=== PATIENT | male | born 1945 | race Caucasian/White ===

== ENCOUNTER → 2016-09-25 | Outpatient (CLI) | payer BC ==
[2016-09-25 14:16] LABS: ABSOLUTE EOSINOPHILS # (AUTO) 0.1 10^3/uL (0.0-0.6); ABSOLUTE LYMPHOCYTES (AUTO) 0.7 10^3/uL (0.5-4.7); ABSOLUTE MONOCYTES (AUTO) 0.8 10^3/uL (0.1-1.4); ABSOLUTE NEUT (AUTO) 7.5 10^3/uL (1.7-8.2); BASOPHILS % (AUTO) 0.4 % (0-2); EOSINOPHILS % (AUTO) 1.2 % (0-6); HEMATOCRIT 51.8 % (37.9-51.0); HEMOGLOBIN 17.5 g/dL (13.5-17.0); HGB HCT DIFFERENCE 0.7; LYMPHOCYTES % (AUTO) 7.8 % (13-45); MEAN CORPUSCULAR HEMOGLOBIN 32.8 pg (27.0-33.4); MEAN CORPUSCULAR HGB CONC 33.9 g/dL (32.0-36.0); MEAN CORPUSCULAR VOLUME 97 fl (80-97); MONOCYTES % (AUTO) 8.7 % (3-13); RED BLOOD COUNT 5.34 10^6/uL (4.35-5.55); RED CELL DISTRIBUTION WIDTH 14.6 % (11.5-14.0); SEGMENTED NEUTROPHILS % (AUTO) 81.9 % (42-78); WHITE BLOOD COUNT 9.1 10^3/uL (4.0-10.5)
[2016-09-25 14:38] LABS: ALANINE AMINOTRANSFERASE 39 U/L (21-72); ALBUMIN 3.7 g/dL (3.5-5.0); ALKALINE PHOSPHATASE 59 U/L (38-126); ANION GAP 9 (5-19); ASPARTATE AMINO TRANSFERASE 20 U/L (17-59); BILIRUBIN,TOTAL 1.8 mg/dL (0.2-1.3); BLOOD UREA NITROGEN 13 mg/dL (7-20); CALCIUM 8.6 mg/dL (8.4-10.2); CARBON DIOXIDE 25 mmol/L (22-30); CHLORIDE 103 mmol/L (98-107); CHOLESTEROL 117.16 mg/dL (0-200); CREATININE RESULT 0.65 mg/dL (0.52-1.25); Direct HDL 43 mg/dL (>40); GLUCOSE 92 mg/dL (75-110); MAGNESIUM 1.9 mg/dL (1.6-2.3); POTASSIUM 4.1 mmol/L (3.6-5.0); SODIUM 137.4 mmol/L (137-145); TOTAL PROTEIN 6.1 g/dL (6.3-8.2); TRIGLYCERIDES 39 mg/dL (<150)
[2016-09-25 14:49] LABS: DIRECT LDL 67 mg/dL (<100)
[2016-09-25 14:55] LABS: FREE T3 4.14 pg/mL (2.77-5.27)
[2016-09-25 15:09] LABS: THYROID STIMULATING HORMONE 1.76 uIU/mL (0.47-4.68)
--- NOTE | 2016-09-25 20:02 | EKG REPORT ---
SEVERITY:- ABNORMAL ECG - SINUS RHYTHM LEFT ANTERIOR FASCICULAR BLOCK : Confirmed by: Rosa Cox 25-Sep-2016 20:01:30
[2016-09-27 07:41] LABS: DEHYDROEPIANDROSTERONE SULFATE 172.4 ug/dL (30.9-295.6)
[2016-09-27 15:27] LABS: ESTRADIOL 100.6 pg/mL (7.6-42.6); SEX HORM BINDING GLOBULIN 30.2 nmol/L (19.3-76.4); VITAMIN D 25-HYDROXY 52.9 ng/mL (30.0-100.0)
[2016-09-28 15:36] LABS: INSULIN-LIKE GROWTH FACTOR I 136 ng/mL (47-192)
[2016-09-29 07:10] LABS: TESTOSTERONE FREE (DIRECT) 30.6 pg/mL (6.6-18.1)
[2016-09-29 12:39] LABS: HOMOCYST(E)INE PLASMA 8.6 umol/L (0.0-15.0)
== END ==
LOC: OD 13:03
PROVIDERS: ATTEND Anesthesiology
DX: E34.9 Endocrine disorder, unspecified (principal); E63.9 Nutritional deficiency, unspecified; E03.9 Hypothyroidism, unspecified; R53.83 Other fatigue; N52.9 Male erectile dysfunction, unspecified; R53.81 Other malaise; E78.5 Hyperlipidemia, unspecified
CPT/HCPCS: 36415; 80053; 80061; 82306; 82627; 82670; 82728; 83036; 83090; 83735; 84153; 84270; 84305; 84402; 84403; 84439; 84443; 84481; 85025; 93005; 93010

== ENCOUNTER → 2017-02-05 | Outpatient (CLI) | payer BC ==
--- NOTE | 2017-02-05 16:45 | RADIOLOGY REPORT (SQ) ---
EXAM DESCRIPTION: CHEST PA/LATERAL COMPLETED DATE/TIME: 02/05/2017 3:52 pm REASON FOR STUDY: PRE OP COMPARISON: None. EXAM PARAMETERS: NUMBER OF VIEWS: two views TECHNIQUE: Digital Frontal and Lateral radiographic views of the chest acquired. RADIATION DOSE: NA LIMITATIONS: none FINDINGS: LUNGS AND PLEURA: No opacities, masses or pneumothorax. No pleural effusion. MEDIASTINUM AND HILAR STRUCTURES: No masses or contour abnormalities. HEART AND VASCULAR STRUCTURES: Heart normal size. No evidence for failure. Tortuous thoracic aorta is again identified. BONES: No acute findings. HARDWARE: None in the chest. OTHER: No other significant finding. IMPRESSION: NO SIGNIFICANT RADIOGRAPHIC FINDING IN THE CHEST. TECHNICAL DOCUMENTATION: JOB ID: [id number] [employer]- All Rights Reserved
[2017-02-05 16:56] LABS: ABSOLUTE EOSINOPHILS # (AUTO) 0.1 10^3/uL (0.0-0.6); ABSOLUTE LYMPHOCYTES (AUTO) 0.9 10^3/uL (0.5-4.7); ABSOLUTE NEUT (AUTO) 10.2 10^3/uL (1.7-8.2); BASOPHILS % (AUTO) 0.2 % (0-2); EOSINOPHILS % (AUTO) 0.8 % (0-6); HEMATOCRIT 47.9 % (37.9-51.0); HEMOGLOBIN 16.2 g/dL (13.5-17.0); HGB HCT DIFFERENCE 0.7; MEAN CORPUSCULAR HEMOGLOBIN 31.6 pg (27.0-33.4); MEAN CORPUSCULAR HGB CONC 33.8 g/dL (32.0-36.0); MEAN CORPUSCULAR VOLUME 93 fl (80-97); MONOCYTES % (AUTO) 8.5 % (3-13); RED BLOOD COUNT 5.13 10^6/uL (4.35-5.55); RED CELL DISTRIBUTION WIDTH 14.1 % (11.5-14.0); SEGMENTED NEUTROPHILS % (AUTO) 83.5 % (42-78); WHITE BLOOD COUNT 12.3 10^3/uL (4.0-10.5)
[2017-02-05 17:11] LABS: APPEARANCE,URINE SLIGHTLY-CLOUDY; BILIRUBIN,URINE NEGATIVE (NEGATIVE); CALCIUM OXALATE CRYSTALS,URINE FEW /HPF; GLUCOSE, URINE NEGATIVE (NEGATIVE); KETONES,URINE TRACE mg/dL (NEGATIVE); LEUKOCYTE ESTERASE,URINE NEGATIVE (NEGATIVE); NITRITE,URINE NEGATIVE (NEGATIVE); PROTEIN,URINE NEGATIVE (NEGATIVE); URINE SPECIFIC GRAVITY 1.029; UROBILINOGEN,URINE NEGATIVE mg/dL (<2.0)
[2017-02-05 17:17] LABS: BLOOD UREA NITROGEN 21 mg/dL (7-20); CARBON DIOXIDE 26 mmol/L (22-30); CHLORIDE 103 mmol/L (98-107); CREATININE RESULT 0.68 mg/dL (0.52-1.25); GLUCOSE 78 mg/dL (75-110); SODIUM 139.4 mmol/L (137-145)
[2017-02-05 17:18] LABS: ANION GAP 10 (5-19)
--- NOTE | 2017-02-06 05:58 | EKG REPORT ---
SEVERITY:- ABNORMAL ECG - ATRIAL FIBRILLATION, V-RATE 96-156 LEFT AXIS DEVIATION : Confirmed by: Francesca Donohue MD 06-Feb-2017 05:56:57
== END ==
LOC: OD 15:09
PROVIDERS: ATTEND Orthopaedic Surgery
DX: Z01.818 Encounter for other preprocedural examination (principal)
CPT/HCPCS: 36415; 71020; 80048; 81001; 85025; 93005; 93010

== ENCOUNTER → 2017-02-09 | Outpatient (CLI) | payer BC ==
[2017-02-09 15:39] LABS: PARTIAL THROMBOPLASTIN TIME 27.6 SEC (23.5-35.8); PROTHROMBIN TIME 13.5 SEC (11.4-15.4)
[2017-02-09 15:55] LABS: ALANINE AMINOTRANSFERASE 37 U/L (21-72); ALBUMIN 3.7 g/dL (3.5-5.0); ALKALINE PHOSPHATASE 75 U/L (38-126); ANION GAP 11 (5-19); ASPARTATE AMINO TRANSFERASE 22 U/L (17-59); BILIRUBIN,DIRECT 0.4 mg/dL (0.0-0.4); BILIRUBIN,TOTAL 1.4 mg/dL (0.2-1.3); BLOOD UREA NITROGEN 22 mg/dL (7-20); CARBON DIOXIDE 25 mmol/L (22-30); CHLORIDE 104 mmol/L (98-107); CHOLESTEROL 121.61 mg/dL (0-200); CREATININE RESULT 0.72 mg/dL (0.52-1.25); Direct HDL 47 mg/dL (>40); GLUCOSE 81 mg/dL (75-110); MAGNESIUM 2.1 mg/dL (1.6-2.3); POTASSIUM 4.3 mmol/L (3.6-5.0); SODIUM 140.1 mmol/L (137-145); TOTAL PROTEIN 6.6 g/dL (6.3-8.2); TRIGLYCERIDES 78 mg/dL (<150)
[2017-02-09 16:06] LABS: DIRECT LDL 69 mg/dL (<100)
[2017-02-09 16:22] LABS: THYROID STIMULATING HORMONE 2.91 uIU/mL (0.47-4.68)
== END ==
LOC: OD 13:18
PROVIDERS: ATTEND Internal Medicine Cardiovascular Disease
DX: I48.91 Unspecified atrial fibrillation (principal); Z79.899 Other long term (current) drug therapy
CPT/HCPCS: 36415; 80048; 80061; 80076; 83735; 83880; 84439; 84443; 85025; 85610; 85730

== ENCOUNTER → 2017-02-09 | Outpatient (CLI) | payer BC ==
[2017-02-09 17:05] LABS: ABSOLUTE EOSINOPHILS # (AUTO) 0.1 10^3/uL (0.0-0.6); ABSOLUTE MONOCYTES (AUTO) 0.9 10^3/uL (0.1-1.4); ABSOLUTE NEUT (AUTO) 9.3 10^3/uL (1.7-8.2); BASOPHILS % (AUTO) 0.4 % (0-2); EOSINOPHILS % (AUTO) 0.9 % (0-6); HEMATOCRIT 47.4 % (37.9-51.0); HEMOGLOBIN 15.9 g/dL (13.5-17.0); HGB HCT DIFFERENCE 0.3; LYMPHOCYTES % (AUTO) 8.7 % (13-45); MEAN CORPUSCULAR HEMOGLOBIN 31.5 pg (27.0-33.4); MEAN CORPUSCULAR HGB CONC 33.5 g/dL (32.0-36.0); MEAN CORPUSCULAR VOLUME 94 fl (80-97); MONOCYTES % (AUTO) 8.1 % (3-13); RED BLOOD COUNT 5.03 10^6/uL (4.35-5.55); RED CELL DISTRIBUTION WIDTH 14.5 % (11.5-14.0); SEGMENTED NEUTROPHILS % (AUTO) 81.9 % (42-78); WHITE BLOOD COUNT 11.3 10^3/uL (4.0-10.5)
== END ==
LOC: OD 16:04
PROVIDERS: ATTEND Physician Assistant
DX: D72.829 Elevated white blood cell count, unspecified (principal)
CPT/HCPCS: 36415; 85025

== ENCOUNTER 2017-02-11 05:55 | Inpatient (IN) | payer BC, MEDICARE ==
[~2017-02-11 05:55] MED LIST: BUPIVACAINE INJ/PF LIPOSOME/PF 266 MG/20 ML SDV INJ PRN; CEFAZOLIN INJ 1 GM VIAL IV PRN; IBUPROFEN 800 MG in NORMAL SALINE 250 ML IV PRN; LANSOPRAZOLE 15 MG TAB.RAP.DR PO PRN; OXYCODONE HCL SR 10 MG TABLET PO PRN; VANCOMYCIN HCL 1,000 MG in DEXTROSE 5%-WATER 250 ML IV PRN
[2017-02-11] MEDS ORDERED: DILTIAZEM HCL/D5W 125 MG/125 ML RTUINJ IV ONE (10:11)
[2017-02-11] MEDS ORDERED: DILTIAZEM HCL INJ 25 MG/5 ML VIAL ONE (10:12)
[2017-02-11] MEDS ORDERED: THROMBIN (BOVINE) TOPICAL 20000 UNIT VIAL ONE (10:29)
[2017-02-11] MEDS ORDERED: THROMBIN (BOVINE) 5000 UNIT EPITAXIS KIT ONE (10:29)
[2017-02-11] MEDS ORDERED: BUPIVACAINE INJ/PF LIPOSOME/PF 266 MG/20 ML SDV ONE (10:30)
[2017-02-11] MEDS ORDERED: MIDAZOLAM 2 MG/2 ML INJ ONE ×2 (10:33)
[2017-02-11] MEDS ORDERED: FENTANYL CITRATE INJ/PF 100 MCG/2 ML AMPUL ONE ×2 (10:33)
[2017-02-11] MEDS ORDERED: ONDANSETRON HCL INJ/PF 4 MG/2 ML SDV ONE (10:34)
[2017-02-11] MEDS ORDERED: DEXAMETHASONE SOD PHOSPHATE INJ 4 MG/1 ML VIAL ONE (10:34)
[2017-02-11] MEDS ORDERED: PROPOFOL INJ 200 MG/20 ML VIAL IV ONE (10:34)
[2017-02-11] MEDS ORDERED: MORPHINE SULFATE 10 MG/ML INJ ONE (10:35)
[2017-02-11] MEDS ORDERED: VANCOMYCIN HCL INJ 1000 MG VIAL ONE (10:42)
[2017-02-11] MEDS ORDERED: FENTANYL CITRATE INJ/PF 100 MCG/2 ML AMPUL IV PRN ×3 (11:24)
[2017-02-11] MEDS ORDERED: DIPHENHYDRAMINE HCL 50 MG/ML VIAL IV PRN ×2 (11:24→11:58)
[2017-02-11] MEDS ORDERED: MORPHINE SULFATE 10 MG/ML INJ IV PRN ×4 (11:24→11:58)
[2017-02-11] MEDS ORDERED: MEPERIDINE HCL/PF INJ 25 MG/1 ML DISP.SYRIN IV PRN (11:24)
[2017-02-11] MEDS ORDERED: OXYCODONE-ACETAMINOPHEN 5-325 MG TABLET PO PRN ×2 (11:24)
[2017-02-11] MEDS ORDERED: PROMETHAZINE HCL INJ 25 MG/1 ML VIAL IV PRN ×2 (11:24)
[2017-02-11] MEDS ORDERED: OXYCODONE HCL IR 5 MG TABLET PO PRN (11:58)
[2017-02-11] MEDS ORDERED: ACETAMINOPHEN 325 MG TABLET PO PRN (11:58)
[2017-02-11] MEDS ORDERED: ZOLPIDEM TARTRATE 5 MG TABLET PO PRN (11:58)
[2017-02-11] MEDS ORDERED: MORPHINE SULFATE 10 MG/ML INJ IM PRN (11:58)
[2017-02-11] MEDS ORDERED: MAG HYDROX/AL HYDROX/SIMETH SUSP 30 ML UDCUP PO PRN (11:58)
[2017-02-11] MEDS ORDERED: ONDANSETRON 4 MG TAB.RAPDIS PO PRN (11:58)
[2017-02-11] MEDS ORDERED: TIZANIDINE HCL PO PRN (11:58)
[2017-02-11] MEDS ORDERED: ONDANSETRON HCL INJ/PF 4 MG/2 ML SDV IV PRN (11:58)
--- NOTE | 2017-02-11 11:58 | Operative Report ---
Operative Report DATE OF SURGERY: 02/11/17 PREOPERATIVE DIAGNOSIS: Right hip arthritis POSTOPERATIVE DIAGNOSIS: Right femoral head avascular necrosis OPERATION: Hip arthroplasty SURGEON: MURRAY HILTON ANESTHESIA: Spinal TISSUE REMOVED OR ALTERED: Femoral head to pathology ESTIMATED BLOOD LOSS: 100 PROCEDURE: Implants used: Femur: Lakshmi Accolade 2 size 6 stem Acetabular shell: 52 mm PSL cup Liner: 36 mm flat cross-linked polyethylene liner Head: 6 mm chrome cobalt head -5 neck The patient is placed in a left lateral decubitus position on the operating table. The right lower extremity and hindquarter is prepped and draped in a sterile fashion. A curvilinear incision was made over the greater trochanter a posterior approach the hip was taken. The femoral head is dislocated and the femoral neck transected using an oscillating saw. Attention was next turned to the acetabulum. Soft tissues cleared off the acetabulum using electrocautery. The acetabulum was then prepared using a series of hemispherical reamers until a 52 millimeters reamer is seated. Subsequently a 52 millimeters Lakshmi PSL shell is impacted into position and secured with one screw. A standard flat 36 millimeters cross-link liner is impacted into the shell. Attention was next turned to the femur. Access is gained to the femoral canal using a box osteotome to the piriformis fossa. The femur is then prepared using a series of broaches until a number 6 broach is seated. A trial reduction was now performed using a 36 millimeters head with -5 neck. Preoperative leg length was recreated and is excellent anterior posterior stability. A decision was made to proceed with the above construct. All trial implants were removed. The wound is irrigated with pulsed lavage. A number 6 stem is impacted into the femoral canal. A trial reduction was again performed with a 36 mm head and a -5 neck. Findings as previously. The hip was dislocated one last time and the final chrome-cobalt head is impacted onto the trunnion. The hip was reduced. Wound is copiously irrigated with pulsed lavage. Sent closed in layers using interrupted Vicryl followed by pawan. A sterile dressing is applied and the patient's returned to recovery room in satisfactory patient.
[2017-02-11] MEDS ORDERED: CYANOCOBALAMIN IM SCH (12:00)
[2017-02-11] MEDS ORDERED: TESTOSTERONE CYPIONATE IM SCH (12:00)
[2017-02-11] MEDS ORDERED: TIZANIDINE HCL 4 MG TABLET PO PRN (12:09)
[2017-02-11] MEDS ORDERED: CYANOCOBALAMIN (VITAMIN B-12) INJ 1000 MCG/1 ML VIAL IM SCH (12:15)
--- NOTE | 2017-02-11 13:02 | RADIOLOGY REPORT (SQ) ---
EXAM DESCRIPTION: PELVIS AP COMPLETED DATE/TIME: 02/11/2017 12:39 pm REASON FOR STUDY: Post Op Long Cassette in PACU M16.11 UNILATERAL PRIMARY OSTEOARTHRITIS, RIGHT HI P COMPARISON: None. NUMBER OF VIEWS: One view TECHNIQUE: Digital radiographic images of the pelvis post-procedure LIMITATIONS: None. FINDINGS: BONES: No worrisome or unexpected findings post-procedure. DEVICE: Total hip replacement. Components of the device in appropriate location. SOFT TISSUES: No worrisome findings. Expected postoperative soft tissue changes. IMPRESSION: SATISFACTORY POSTOPERATIVE PELVIS. TECHNICAL DOCUMENTATION: JOB ID: [id number] [employer]- All Rights Reserved
[2017-02-11] MEDS ORDERED: RINGERS SOLUTION,LACTATED 400 ML IV PRN (14:04)
[2017-02-11] MEDS ORDERED: RINGERS SOLUTION,LACTATED 400 ML IV ONE (14:30)
--- NOTE | 2017-02-11 16:18 | EKG REPORT ---
SEVERITY:- ABNORMAL ECG - ATRIAL FIBRILLATION, V-RATE 74-112 MULTIPLE VENTRICULAR PREMATURE COMPLEXES BORDERLINE LEFT AXIS DEVIATION : Confirmed by: Francesca Donohue MD 11-Feb-2017 16:17:08
[2017-02-11] MEDS: RINGERS SOLUTION,LACTATED 1,000 ML IV PRN (17:57)
[2017-02-11] MEDS: IBUPROFEN 800 MG in NORMAL SALINE 250 ML IV SCH (18:34)
[2017-02-11] MEDS: SENNOSIDES/DOCUSATE 8.6-50 MG 1 EACH TABLET PO SCH (18:36)
[2017-02-11] MEDS: ATENOLOL 50 MG TABLET PO SCH (21:32)
[2017-02-11] MEDS: OXYCODONE HCL SR 10 MG TABLET PO SCH (21:34)
[2017-02-11] MEDS: RIVAROXABAN 10 MG TABLET PO SCH (21:35)
[2017-02-11] MEDS ORDERED: TADALAFIL PO SCH (22:00)
[2017-02-11] MEDS ORDERED: VANCOMYCIN HCL 1,000 MG in DEXTROSE 5%-WATER 250 ML IV ONE (23:59)
[2017-02-12] MEDS: IBUPROFEN 800 MG in NORMAL SALINE 250 ML IV SCH ×3 (01:34→18:07)
[2017-02-12 04:59] LABS: HEMATOCRIT 36.5 % (37.9-51.0); HGB HCT DIFFERENCE 1.3; MEAN CORPUSCULAR HEMOGLOBIN 32.4 pg (27.0-33.4); MEAN CORPUSCULAR HGB CONC 34.5 g/dL (32.0-36.0); MEAN CORPUSCULAR VOLUME 94 fl (80-97); RED BLOOD COUNT 3.88 10^6/uL (4.35-5.55); RED CELL DISTRIBUTION WIDTH 14.2 % (11.5-14.0); WHITE BLOOD COUNT 9.5 10^3/uL (4.0-10.5)
[2017-02-12 05:07] LABS: HEMOGLOBIN 12.6 g/dL (13.5-17.0)
[2017-02-12 05:12] LABS: ANION GAP 5 (5-19); BLOOD UREA NITROGEN 16 mg/dL (7-20); CALCIUM 8.2 mg/dL (8.4-10.2); CARBON DIOXIDE 28 mmol/L (22-30); CHLORIDE 103 mmol/L (98-107); CREATININE RESULT 0.76 mg/dL (0.52-1.25); GLUCOSE 132 mg/dL (75-110); POTASSIUM 5.1 mmol/L (3.6-5.0); SODIUM 135.7 mmol/L (137-145)
[2017-02-12] MEDS: LANSOPRAZOLE 30 MG TAB.RAP.DR PO SCH (05:23)
[2017-02-12] MEDS ORDERED: MAG HYDROX/AL HYDROX/SIMETH SUSP 30 ML UDCUP PO PRN (07:22)
[2017-02-12] MEDS ORDERED: ONDANSETRON HCL INJ/PF 4 MG/2 ML SDV IV PRN (07:23)
[2017-02-12] MEDS: OXYCODONE HCL SR 10 MG TABLET PO SCH ×2 (09:52→21:33)
[2017-02-12] MEDS: CYANOCOBALAMIN (VITAMIN B-12) 1,000 MCG TABLET PO SCH (09:56)
[2017-02-12] MEDS: TAMSULOSIN HCL 0.4 MG CAP.SR.24H PO SCH (09:57)
[2017-02-12] MEDS: CHOLECALCIFEROL (D3) 1,000 UNIT TABLET PO SCH (09:57)
[2017-02-12] MEDS: PRENATAL VITAMIN W-O CA NO5/FE FUMARATE/FA CAPSULE PO SCH (09:57)
[2017-02-12] MEDS: SENNOSIDES/DOCUSATE 8.6-50 MG 1 EACH TABLET PO SCH ×2 (09:57→18:09)
[2017-02-12] MEDS: ATENOLOL 50 MG TABLET PO SCH ×2 (09:58→21:33)
[2017-02-12] MEDS ORDERED: (PENDING PHARMACY ID) (Cholecalciferol (Vitamin D3) [Vitamin D3] 1 TAB) PO SCH (10:00)
[2017-02-12] MEDS: RINGERS SOLUTION,LACTATED 1,000 ML IV PRN (10:00)
[2017-02-12] MEDS ORDERED: PRASTERONE PO SCH (10:00)
[2017-02-12] MEDS ORDERED: CYANOCOBALAMIN PO SCH (10:00)
[2017-02-12] MEDS: RIVAROXABAN 10 MG TABLET PO SCH (21:33)
[2017-02-13] MEDS: IBUPROFEN 800 MG in NORMAL SALINE 250 ML IV SCH ×2 (02:19→10:33)
[2017-02-13 04:40] LABS: HEMATOCRIT 32.7 % (37.9-51.0); HEMOGLOBIN 11.6 g/dL (13.5-17.0); HGB HCT DIFFERENCE 2.1; MEAN CORPUSCULAR HEMOGLOBIN 32.8 pg (27.0-33.4); MEAN CORPUSCULAR HGB CONC 35.3 g/dL (32.0-36.0); MEAN CORPUSCULAR VOLUME 93 fl (80-97); RED BLOOD COUNT 3.52 10^6/uL (4.35-5.55); RED CELL DISTRIBUTION WIDTH 14.5 % (11.5-14.0); WHITE BLOOD COUNT 7.7 10^3/uL (4.0-10.5)
[2017-02-13] MEDS: LANSOPRAZOLE 30 MG TAB.RAP.DR PO SCH (05:22)
--- NOTE | 2017-02-13 07:08 | PDOC DISCHARGE SUMMARY ---
General - Admit/Disc Date/PCP Admission Date/Primary Care Provider: 02/11/17 08:45 ELENA FORD PA-C Discharge Date: 02/13/17 - Discharge Diagnosis (1) Arthritis, hip Is this a current diagnosis for this admission?: Yes - Additional Information Resuscitation Status: Full Code Discharge Diet: As Tolerated, Regular Discharge Activity: Balance Activity w/Rest, No Driving, No tub bath Home Medications: Aspirin 1 tab PO DAILY 02/06/17 Cholecalciferol (Vitamin D3) [Vitamin D3] 1 tab PO DAILY 02/06/17 Cyanocobalamin (Vitamin B-12) [Vitamin B-12] 1 ml IM ASDIR 02/06/17 Cyanocobalamin (Vitamin B-12) [Vitamin B12] 1 tab PO DAILY 02/06/17 Meloxicam 1 tab PO BID 02/06/17 Prasterone (Dhea) [Dhea] 1 cap PO DAILY 02/06/17 Tadalafil [Cialis] 1 tab PO QHS 02/06/17 Tamsulosin HCl [Flomax 0.4 mg Cap.sr] 1 cap PO DAILY 02/06/17 Testosterone Cypionate [Depo-Testosterone] 0.5 ml IM ASDIR 02/06/17 Tizanidine HCl [Zanaflex] 1 tab PO Q6 PRN 02/06/17 Atenolol 50 mg PO BID 02/11/17 Oxycodone HCl [Oxy-Ir 5 mg Tablet] 5 mg PO Q6HP PRN #0 tablet 02/13/17 Rivaroxaban [Xarelto 10 mg Tablet] 10 mg PO QHS #0 tablet 02/13/17 History of Present Illness History of Present Illness: MARIA GUADALUPE YOUNG is a 72 year old male's of right hip pain and functional disability secondary osteoarthritis. Admitted for elective right hip arthroplasty. Hospital Course Hospital Course: Admitted through the operating room where he undergoes uncomplicated right hip arthroplasty. Is returned to the floor in satisfactory condition. Makes excellent progress with physical therapy ambulating 200 feet on postop day 1. Picot dressing is changed on postop day [address]-through postop day 2. The patient subsequently for discharge home with home health nursing, home health physical therapy, dilia cesar, bedside commode. Physical Exam Vital Signs: Temp Pulse Resp BP Pulse Ox 36.7 C 102 H 16 105/65 97 02/13/17 04:00 02/13/17 04:00 02/12/17 16:00 02/12/17 16:00 02/13/17 04:00 Intake & Output 02/12/17 02/13/17 02/14/17 06:59 06:59 06:59 Intake Total 6900 3700 Output Total 4350 1800 Balance 2550 1900 Weight 80.3 kg 80.3 kg General appearance: PRESENT: no acute distress Head exam: PRESENT: normocephalic Eye exam: PRESENT: EOMI Respiratory exam: PRESENT: unlabored Cardiovascular exam: PRESENT: RRR Pulses: PRESENT: +1 pedal pulses bilateral Vascular exam: PRESENT: normal capillary refill GI/Abdominal exam: PRESENT: soft Rectal exam: PRESENT: deferred Extremities exam: PRESENT: other - Right hip picot dressing with a small amount of drainage. There is a large amount of surrounding superficial ecchymosis. Distal neurovascular examination is intact and leg lengths are equal. Neurological exam: PRESENT: alert, awake, oriented to person, oriented to place , oriented to time, oriented to situation. ABSENT: motor sensory deficit Psychiatric exam: PRESENT: appropriate affect, normal mood. ABSENT: homicidal ideation, suicidal ideation Skin exam: PRESENT: dry, intact, warm. ABSENT: cyanosis, rash Results Laboratory Results: 02/13/17 04:26 02/12/17 04:39 02/13/17 04:26 WBC 7.7 RBC 3.52 L Hgb 11.6 L Hct 32.7 L MCV 93 MCH 32.8 MCHC 35.3 RDW 14.5 H Plt Count 107 L Impressions: Pelvis X-Ray 02/11/17 12:00 IMPRESSION: SATISFACTORY POSTOPERATIVE PELVIS. Status: Imported from PACS Plan Discharge Plan: Discharge home with home health nursing, home health physical therapy, wheeled walker, bedside commode. Visiting nurse service to change the right hip picot dressing on postop day 7 and replaced with an OpSite. Follow-up will be duct with Dr. Villanueva in the [facility] for surgery in 2 weeks for staple removal.
[2017-02-13] MEDS: OXYCODONE HCL SR 10 MG TABLET PO SCH (09:12)
[2017-02-13] MEDS: SENNOSIDES/DOCUSATE 8.6-50 MG 1 EACH TABLET PO SCH (09:13)
[2017-02-13] MEDS: CYANOCOBALAMIN (VITAMIN B-12) 1,000 MCG TABLET PO SCH (09:14)
[2017-02-13] MEDS: TAMSULOSIN HCL 0.4 MG CAP.SR.24H PO SCH (09:15)
[2017-02-13] MEDS: CHOLECALCIFEROL (D3) 1,000 UNIT TABLET PO SCH (09:15)
[2017-02-13] MEDS: PRENATAL VITAMIN W-O CA NO5/FE FUMARATE/FA CAPSULE PO SCH (09:16)
[2017-02-13] MEDS: ATENOLOL 50 MG TABLET PO SCH (10:34)
[2017-02-13 13:06] VITALS: BP 106/56
== END 2017-02-13 14:00 | disposition home health service (06) | DRG 470 ==
LOC: INOR 08:45 → 4S 16:22
PROVIDERS: ADMIT Orthopaedic Surgery; ATTEND Orthopaedic Surgery
PROC: 0SR902A Replacement of Right Hip Joint with Metal on Polyethylene Synthetic Substitute, Uncemented, Open Approach (ICD-10-PCS; principal; 2017-02-11 10:30)
DX: M87.851 Other osteonecrosis, right femur (principal); Z96.651 Presence of right artificial knee joint; Z79.82 Long term (current) use of aspirin
CPT/HCPCS: 01214; 36415; 72170; 80048; 85027; 86850; 86900; 86901; 87070; 87075; 87205; 88304; 93005; 93010; 94799; C1713; C1780; C9290; G8978-GP; G8979-GP; J0690; J1100; J1741; J2250; J2270; J2405; J2704; J3010; J3370; J3490; J7050; J7060; J7120